=== PATIENT | female | born 2000 | race Two or more races ===

== ENCOUNTER 2020-11-08 13:09 | Emergency (ER) | payer OTHER ==
[~2020-11-08] VITALS: Ht 157.5 cm; Wt 52.2 kg
[2020-11-08] MEDS ORDERED: PRENATAL + DHA1 EAC1 (13:33)
== END 2020-11-08 18:04 | disposition home or self-care (01) ==
LOC: ER 13:09
DX: N93.9 Abnormal uterine and vaginal bleeding, unspecified (principal); Z3A.22 22 weeks gestation of pregnancy

== ENCOUNTER 2021-02-15 09:56 | Outpatient (CLI) | payer OTHER ==
[~2021-02-15 09:56] MED LIST: PRENATAL + DHA1 EAC1
== END 2021-02-15 11:49 | disposition home or self-care (01) ==
LOC: PRENATAL 09:56
PROVIDERS: ATTEND Obstetrics & Gynecology Maternal & Fetal Medicine
DX: O35.0XX1 Maternal care for (suspected) central nervous system malformation in fetus, fetus 1 (principal); O35.3XX1 Maternal care for (suspected) damage to fetus from viral disease in mother, fetus 1; O98.512 Other viral diseases complicating pregnancy, second trimester; Z36.89 Encounter for other specified antenatal screening; Z3A.20 20 weeks gestation of pregnancy

== ENCOUNTER 2021-05-10 10:36 | Outpatient (CLI) | payer OTHER | END 2021-05-10 11:45 | disposition home or self-care (01) | LOC: PRENATAL 10:36 | PROVIDERS: ATTEND Obstetrics & Gynecology Maternal & Fetal Medicine | DX: O36.8199 Decreased fetal movements, unspecified trimester, other fetus (principal); O35.0XX0 Maternal care for (suspected) central nervous system malformation in fetus, not applicable or unspecified; O26.849 Uterine size-date discrepancy, unspecified trimester ==